=== PATIENT | male | born 1990 | race Caucasian/White ===

== ENCOUNTER 2016-09-10 23:20 | Emergency (ER) | payer BC ==
[~2016-09-10] VITALS: Ht 172.7 cm; Wt 91.1 kg
[2016-09-10 23:25] VITALS: Ht 172.7 cm; Wt 91.1 kg
[2016-09-11 00:58] LABS: URINE BLOOD (Dip) POC 3+ (NEGATIVE)
--- NOTE | 2016-09-11 01:20 | RADRPT ---
PROCEDURE: Testicle ultrasound with power Doppler. CLINICAL INDICATION: Scrotal pain. TECHNIQUE: Multiple sonographic images of the scrotal region were obtained utilizing a linear arra y transducer with grayscale and color-flow and a Doppler imaging. The images were reviewed on a high -resolution PACS workstation. COMPARISON: None. FINDINGS: Bilateral testicles are normal in size, contour, echogenicity and echotexture. The right testicle m easures 4.6 x 2.4 x 3.0 cm and the left testicle measures 4.6 x 2.2 x 2.8 cm. Testicle arterial and venous flow are normal. There is no evidence of testicular mass or torsion. There is no evidence of orchitis. Bilateral epididymi are normal in size, contour, position and echogenicity. The right epididymis me asures 11.9 x 9.7 x 7.4 mm the left epididymis measures 11.5 x 7.9 x 6.4 mm. There is no evidence of epididymitis. There is no significant hydrocele or varicocele. Scrotal soft tissues are unremarka ble. IMPRESSION: Unremarkable testicular ultrasound. .Ankit Howard MD, MD Date Time Electronically viewed and signed by .Ankit Howard MD, MD on 09/11/2016 01:20 .T/
--- NOTE | 2016-09-11 01:44 | ERD ---
ER Documentation Chief Complaint Date/Time DATE: 09/11/16 TIME: 01:44 Chief Complaint right testicular pain x 24 hours HPI This is a 25-year-old male who presents to the emergency department today complaining of an aching in his right testicle. Patient states it is worse with sitting. States he is taking ibuprofen for the pain. Denies any discharge , dysuria, fevers or chills. ROS All systems reviewed and are negative except as per history of present illness. Medications Home Meds Active Scripts Naproxen* (Naprosyn*) 500 Mg Tablet, 500 MG PO BID Y for PAIN AND/OR INFLAMMATION, #30 TAB Prov:KAYLEY DELGADILLO PA-C 09/11/16 Hydrocodone/Acetaminophen ([place] 5-325 Tablet) 1 Each Tablet, 1 TAB PO Q6H Y for PAIN, #12 TAB Prov:KAYLEY DELGADILLO PA-C 09/11/16 Ciprofloxacin Hcl* (Ciprofloxacin Hcl*) 500 Mg Tablet, 500 MG PO BID for 10 Days , TAB Prov:KAYLEY DELGADILLO PA-C 09/11/16 Allergies Allergies: Coded Allergies: No Known Drug Allergies (Verified Allergy, Unknown, 09/10/16) PMhx/Soc Medical and Surgical Hx: pt denies Medical Hx, pt denies Surgical Hx Hx Alcohol Use: No Hx Substance Use: No Hx Tobacco Use: No Smoking Status: Never smoker Physical Exam Vitals Vital Signs Date Time Temp Pulse Resp B/P Pulse Ox O2 Delivery O2 Flow Rate FiO2 09/10/16 23:25 98.4 76 20 156/90 100 Physical Exam Const: No acute distress Head: Atraumatic Eyes: Normal Conjunctiva ENT: Normal External Ears, Nose and Mouth. Neck: Full range of motion..~ No meningismus. Resp: Clear to auscultation bilaterally Cardio: Regular rate and rhythm, no murmurs Abd: Soft, non tender, non distended. Normal bowel sounds : Uncircumcised penis. No discharge. Testicles descended bilaterally. Nontender to palpation. No evidence of masses. Skin: No petechiae or rashes Neur: Awake and alert Psych: Normal Mood and Affect Results 24 hrs Laboratory Tests Test 09/11/16 01:00 Bedside Urine Blood 3+ Bedside Urine Glucose (UA) Negative Bedside Urine Ketones (LAB) Negative Bedside Urine Leukocyte Esterase (L Negative Bedside Urine Nitrite (LAB) Negative Bedside Urine Protein (LAB) 1+ Bedside Urine pH (LAB) 5.5 Patient: ANDERS MALDONADO : 1990 Age: 25 Sex: M MR #: [id number] DOS: 09/11/16 0000 Ordering MD: KAYLEY DELGADILLO PA-C Location: [facility] Room/Bed: PROCEDURE: Testicle ultrasound with power Doppler. CLINICAL INDICATION: Scrotal pain. TECHNIQUE: Multiple sonographic images of the scrotal region were obtained utilizing a linear array transducer with grayscale and color-flow and a Doppler imaging. The images were reviewed on a high-resolution PACS workstation. COMPARISON: None. FINDINGS: Bilateral testicles are normal in size, contour, echogenicity and echotexture. The right testicle measures 4.6 x 2.4 x 3.0 cm and the left testicle measures 4.6 x 2.2 x 2.8 cm. Testicle arterial and venous flow are normal. There is no evidence of testicular mass or torsion. There is no evidence of orchitis. Bilateral epididymi are normal in size, contour, position and echogenicity. The right epididymis measures 11.9 x 9.7 x 7.4 mm the left epididymis measures 11.5 x 7.9 x 6.4 mm. There is no evidence of epididymitis. There is no significant hydrocele or varicocele. Scrotal soft tissues are unremarkable. IMPRESSION: Unremarkable testicular ultrasound. .Ankit Howard MD, MD Date Time Electronically viewed and signed by .Ankit Howard MD, MD on 09/11/2016 01:20 .T/ CC: KAYLEY DELGADILLO PA-C Procedures/[facility] This a 25-year-old male who presents to the emergency department today complaining of aching in his right testicle. I did obtain a UA as well as an ultrasound UA shows negative leukocyte esterase and negative nitrites however as there is 3 + blood. UA was sent for gonorrhea and chlamydia. Testicular ultrasound is unremarkable. There is no evidence of orchitis or epididymitis. There is no significant hydrocele varicocele. Scrotal soft tissues are unremarkable. There is no evidence of testicular mass or torsion. Patient has hematuria of uncertain etiology. He may have passed a kidney stone which could have caused some referred testicular pain. I have explained this to the patient. I did discuss the UA with Dr. Conner and he requested that the patient be sent home on Cipro for possible prostatitis given the patient's complaint is worse with sitting. Patient is afebrile and otherwise well- appearing. I do not feel he requires IV antibiotics at this time. Patient was discharged with a prescription for Cipro, [place] and Naprosyn. He was instructed to follow-up with his primary care physician for urology referral. I have also given him a list of urology resources. Patient understood and agreed with the plan. At this time the patient is stable for discharge and outpatient management. Patient should follow up with their PCP in the next 1-2 days. They may return to the emergency department sooner for any persistent or worsening of symptoms. Patient understood and agreed with the plan. Departure Diagnosis: Primary Impression: Pain in testicle Additional Impression: Hematuria Condition: Fair KAYLEY DELGADILLO PA-C Sep 11, 2016 01:44
[2016-09-11] MEDS ORDERED: CIPR500T4 PO (02:00)
[2016-09-11] MEDS ORDERED: HYDR-906 PO (02:01)
[2016-09-11] MEDS ORDERED: NAPR-260 PO (02:02)
[2016-09-11 02:28] VITALS: BP 153/92; PULSE 64; RESP 18; TEMP 98.2
== END 2016-09-11 02:28 | disposition home or self-care (01) ==
LOC: FTE 23:20
DX: N50.811 Right testicular pain (principal); N50.812 Left testicular pain; R31.9 Hematuria, unspecified
CPT/HCPCS: 76870; 81003; 87591; Z7502